=== PATIENT | female | born 1985 | race Hispanic/Latino ===

== ENCOUNTER 2019-08-20 15:38 | Emergency (ER) | payer OTHER ==
[2019-08-20] MEDS ORDERED: KETOROLAC TROMETHAMINE 30MG/ML ONE (17:06)
== END 2019-08-20 17:13 | disposition home or self-care (01) ==
LOC: EDH 15:38
DX: R51 Headache (principal); Z72.0 Tobacco use
CPT/HCPCS: 81025; 96372; 99283; J1885

== ENCOUNTER 2020-12-11 02:05 | Emergency (ER) | payer OTHER ==
[2020-12-11] MEDS ORDERED: LIDOCAINE HCL 2% VISCOUS 15 ML UDCUP ONE (02:47)
[2020-12-11] MEDS ORDERED: MAGNESIUM HYDROXIDE 30 ML/UDCUP ONE (02:47)
[2020-12-11] MEDS ORDERED: ALBUTEROL INHALER 90MCG/INH IH ONE (02:48)
[2020-12-11] MEDS ORDERED: AZITHROMYCIN 250 MG TABLET PO ONE (04:12)
[2020-12-11] MEDS ORDERED: PREDNISONE 20 MG TABLET ONE (04:12)
== END 2020-12-11 04:21 | disposition home or self-care (01) ==
LOC: EDH 02:05
DX: J20.9 Acute bronchitis, unspecified (principal); J45.909 Unspecified asthma, uncomplicated; Z20.822 Contact with and (suspected) exposure to COVID-19; Z79.899 Other long term (current) drug therapy; Z72.0 Tobacco use
CPT/HCPCS: 71045; 87426; 87804 ×2; 99284; U0003

== ENCOUNTER 2020-12-15 19:03 | Emergency (ER) | payer OTHER ==
[2020-12-15] MEDS ORDERED: PREDNISONE 20 MG TABLET ONE (19:49)
[2020-12-15] MEDS ORDERED: ALBUTEROL SULFATE 0.083% 2.5 MG/3 ML INH IH ONE ×2 (19:52)
== END 2020-12-15 20:24 | disposition home or self-care (01) ==
LOC: EDH 19:03
DX: J45.909 Unspecified asthma, uncomplicated (principal); Z87.891 Personal history of nicotine dependence
CPT/HCPCS: 94640

== ENCOUNTER 2021-07-20 21:18 | Emergency (ER) | payer MEDICAID ==
[~2021-07-20] VITALS: Ht 154.9 cm; Wt 79.4 kg
[2021-07-20] MEDS ORDERED: ACETAMINOPHEN 500 MG TABLET PO ONE (22:00)
[2021-07-20] MEDS ORDERED: GUAIFENESIN/DEXTROMETHORPHAN 1 EACH TAB.SR.12H PO ONE (22:00)
[2021-07-20] MEDS ORDERED: IPRATROPIUM/ALBUTEROL SULFATE 3 ML SOLUTION IH PRN (22:00)
[2021-07-20] MEDS ORDERED: IBUPROFEN 600 MG TABLET PO ONE (22:00)
[2021-07-20 23:12] VITALS: BP 127/56
[2021-07-20] MEDS ORDERED: AZIT500T4 PO (23:15)
[2021-07-20] MEDS ORDERED: ALBU2.5V2 IH (23:15)
[2021-07-20 23:33] VITALS: BP 124/74
== END 2021-07-20 23:25 | disposition home or self-care (01) ==
LOC: EDH 21:18
DX: J45.909 Unspecified asthma, uncomplicated (principal); Z79.1 Long term (current) use of non-steroidal anti-inflammatories (NSAID); Z79.899 Other long term (current) drug therapy; Z87.59 Personal history of other complications of pregnancy, childbirth and the puerperium
CPT/HCPCS: 71045; 87804; 87880; 94640

== ENCOUNTER 2022-08-12 13:32 | Emergency (ER) | payer MEDICAID ==
[~2022-08-12] VITALS: Ht 154.9 cm; Wt 79.4 kg
[~2022-08-12 13:32] MED LIST: ALBU2.5V2 IH; AZIT500T4 PO
[2022-08-12 13:38] VITALS: BP 129/71
== END 2022-08-12 15:36 | disposition home or self-care (01) ==
LOC: EDH 13:32
DX: M79.662 Pain in left lower leg (principal); Z13.9 Encounter for screening, unspecified; J45.909 Unspecified asthma, uncomplicated; Z98.890 Other specified postprocedural states; I82.402 Acute embolism and thrombosis of unspecified deep veins of left lower extremity
CPT/HCPCS: 93971

== ENCOUNTER → 2022-12-02 | Outpatient (CLI) | payer MEDICAID | END | disposition home or self-care (01) | LOC: RAH 12:01 | PROVIDERS: ATTEND Family Medicine | DX: R51.9 Headache, unspecified (principal) | CPT/HCPCS: 70220 ==

== ENCOUNTER 2023-12-03 20:29 | Emergency (ER) | payer MEDICAID, OTHER ==
[~2023-12-03] VITALS: Ht 154.9 cm; Wt 77.1 kg
[2023-12-03 21:01] LABS: RAPID GROUP A STREP negative (NEGATIVE)
[2023-12-03 21:03] LABS: BASOPHILS # (AUTO) 0.03 K/uL (0.00-0.20); BASOPHILS % (AUTO) 0.3 % (0.0-5.0); EOSINOPHILS # (AUTO) 0.13 K/uL (0.00-0.70); EOSINOPHILS % (AUTO) 1.1 % (0.0-8.0); HEMATOCRIT 42.5 % (36-48); IMMATURE GRANULOCYTE ABSOLUTE 0.03 K/uL (0-1); LYMPHOCYTES # (AUTO) 1.5 K/uL (1.0-4.8); LYMPHOCYTES % (AUTO) 12.9 % (21.0-51.0); MEAN CORPUSCULAR HEMOGLOBIN 30.8 pg (27.0-33.0); MEAN CORPUSCULAR HGB CONC 33.4 g/dL (32.0-36.0); MEAN CORPUSCULAR VOLUME 92.2 fL (79-99); MONOCYTES # (AUTO) 0.7 K/uL (0.1-1.0); MONOCYTES % (AUTO) 5.8 % (3.0-13.0); NEUTROPHILS % (AUTO) 79.6 % (40.0-77.0); PLATELET COUNT (AUTO) 306 K/uL (130-400); RED BLOOD CELL COUNT(AUTO) 4.61 MIL/uL (4.00-5.50); RED CELL DISTRIBUTION WIDTH 13.2 % (11.0-15.5); WHITE BLOOD COUNT (AUTO) 11.3 K/uL (4.8-10.8)
[2023-12-03 21:04] LABS: APPEARANCE,URINE CLEAR (CLEAR); BILIRUBIN,URINE NEGATIVE (NEGATIVE); COLOR,URINE LIGHT-YELLOW (YELLOW); GLUCOSE, URINE (UA) NEGATIVE (NEGATIVE); KETONES,URINE NEGATIVE (NEGATIVE); LEUKOCYTE ESTERASE ,URINE 250 Leu/uL (NEGATIVE); NITRATE,URINE NEGATIVE (NEGATIVE); OCCULT BLOOD,URINE LARGE (NEGATIVE); PH,URINE 5.5 (5.0-8.0); PROTEIN,URINE NEGATIVE (NEGATIVE); UROBILINOGEN,URINE 0.2 mg/dL (0.2-1.0)
[2023-12-03 21:05] LABS: ADD UA MICROSCOPIC YES
[2023-12-03 21:06] LABS: HCG,QUALITATIVE URINE NEGATIVE (NEGATIVE)
[2023-12-03 21:09] LABS: SARS-CoV-2, RNA, NAAT NEGATIVE SARS CoV-2 (NEGATIVE)
[2023-12-03 21:13] LABS: CREATININE 0.7 mg/dL (0.5-1.5); POTASSIUM 4.5 mmol/L (3.5-5.1)
[2023-12-03 21:13] LABS: INFLUENZA TYPE A Negative For Type A (NEGATIVE); INFLUENZA TYPE B Negative For Type B (NEGATIVE)
[2023-12-03 21:17] LABS: ALBUMIN 3.7 g/dL (3.5-5.0); BILIRUBIN,TOTAL 0.4 mg/dL (0.2-1.0); TOTAL PROTEIN, SERUM 7.3 g/dL (6.0-8.3)
[2023-12-03 21:20] LABS: BACTERIA,URINE MOD /HPF (None Seen); MUCUS,URINE FEW LPF (None Seen); RBC,URINE TNTC /HPF (0-1); SQUAMOUS EPITHELIAL CELL,UR FEW /HPF (0-2); WBC,URINE 26-50 /HPF (0-1)
[2023-12-03] MEDS: ONDANSETRON ODT 4MG TAB SL ONE (21:42)
[2023-12-03 23:36] VITALS: BP 131/80
[2023-12-04] MEDS: MAG/ALUM/SIMETH 30 ML UDCUP PO ONE (01:42)
[2023-12-04] MEDS: LIDOCAINE HCL 2% VISCOUS 15 ML UDCUP PO ONE (01:42)
[2023-12-04 01:47] VITALS: PULSE 78; RESP 17; O2SAT 99
[2023-12-04] MEDS ORDERED: ONDA4TAB10 PO (02:02)
[2023-12-04] MEDS ORDERED: MACR100 PO (02:02)
[2023-12-04] MEDS ORDERED: FAMO-136 PO (02:02)
[2023-12-04] MEDS: 0.9%NACL 1000ML 1,000 ML IV ONE (02:03)
[2023-12-04] MEDS: NITROFURANTOIN MONOHYD/M-CRYST 100 MG CAPSULE PO ONE (02:08)
== END 2023-12-04 02:13 | disposition home or self-care (01) ==
LOC: EDH 20:29
DX: N39.0 Urinary tract infection, site not specified (principal); R10.13 Epigastric pain; J45.909 Unspecified asthma, uncomplicated; Z20.822 Contact with and (suspected) exposure to COVID-19; Z79.899 Other long term (current) drug therapy; Z98.890 Other specified postprocedural states
CPT/HCPCS: 36415; 71045; 76705; 80053; 81001; 81025; 83690; 84484; 85025; 87088; 87635; 87804; 87880; 93005